=== PATIENT | female | born 2000 | race Caucasian/White ===

== ENCOUNTER 2022-06-20 11:51 | Emergency (ER) | payer BC ==
[~2022-06-20] VITALS: Ht 157.5 cm; Wt 72.7 kg
[2022-06-20 12:53] VITALS: TEMP 98
[2022-06-20 15:47] LABS: COLLECTION METHOD CLEAN CATCH
[2022-06-20 15:52] LABS: BASO # 0.1 K/mm3 (0.0-0.2); BASO % 0.6 % (0.0-2.0); EOS # 0.1 K/mm3 (0.0-0.7); EOS % 0.4 % (0.0-4.0); GRAN # 9.2 K/mm3 (1.4-6.5); GRAN % 65.1 % (42.2-75.2); HEMATOCRIT 44.2 % (37.0-47.0); HEMOGLOBIN 15.2 g/dl (12.5-16.0); LYMPH # 3.5 K/mm3 (1.2-3.4); LYMPH % 24.6 % (20.0-51.0); MEAN CELL VOLUME 83 fl (80.0-100.0); MEAN CORPUSCULAR HEMOGLOBIN 29 pg (27-31); MEAN CORPUSCULAR HGB CONC 34 g/dl (33.0-37.0); MEAN PLATELET VOLUME 10.4 fl (7.4-10.4); MONO # 1.2 K/mm3 (0.1-0.6); MONO % 8.8 % (1.7-9.3); PLATELET COUNT 343 K/mm3 (130-400); RED BLOOD COUNT 5.34 M/mm3 (4.10-5.30); REDCELL DISTRIBUTION WIDTH-CV 12.9 % (11.5-14.5)
[2022-06-20 16:02] LABS: MUCOUS Present (NOT PRESENT); SQUAMOUS EPITHELIAL 20-50 /hpf (0-10); URINE BACTERIA None Seen /hpf (NONE SEEN)
[2022-06-20 16:04] LABS: PH 5.5 (5.0-8.5); URINE APPEARANCE Hazy (CLEAR/HAZY); URINE COLOR Yellow (YELLOW); URINE GLUCOSE Negative (NEGATIVE); URINE KETONE 4+ (NEGATIVE); URINE NITRATE Negative (NEGATIVE); URINE PROTEIN(semi-quant) TRACE (NEGATIVE); URINE UROBILINOGEN 0.2 E.U/dL (0.2-1.0)
[2022-06-20 16:05] LABS: URINE BLOOD 3+ (NEGATIVE)
[2022-06-20 16:11] LABS: ALBUMIN 4.8 gm/dL (3.5-5.0); BILIRUBIN,TOTAL 1.4 mg/dL (0.2-1.2); CREATININE, serum 0.61 mg/dL (0.57-1.11); POTASSIUM 4.6 mmol/L (3.5-4.5); TOTAL PROTEIN 8.4 gm/dL (6.2-8.1)
[2022-06-20] MEDS ORDERED: NORCO 325 MG-51 TAB PO (18:42)
[2022-06-20] MEDS ORDERED: ZOFRAN ODT4 MG PO (18:42)
[2022-06-20 18:56] VITALS: BP 122/76; PULSE 75
== END 2022-06-20 19:03 | disposition home or self-care (01) ==
LOC: COL.ER 11:51
PROVIDERS: Personal Emergency Response Attendant
DX: R10.31 Right lower quadrant pain (principal); R10.11 Right upper quadrant pain; K80.20 Calculus of gallbladder without cholecystitis without obstruction; Z88.6 Allergy status to analgesic agent; Z32.02 Encounter for pregnancy test, result negative
CPT/HCPCS: J2270; J2405; J7030; Q9967

== ENCOUNTER 2022-07-19 10:43 | Day surgery (SDC) | payer BC ==
[~2022-07-19] VITALS: Ht 157.5 cm; Wt 73.5 kg
[2022-07-19] VITALS (7 sets, daily range): BP systolic 115–129; BP diastolic 55–73; PULSE 72–92; TEMP 97.4–97.7
[~2022-07-19 10:43] MED LIST: NORCO 325 MG-51 TAB PO; ZOFRAN ODT4 MG PO
[2022-07-19] MEDS ORDERED: PROZAC 20MG20 MG PO (11:54)
[2022-07-19] MEDS ORDERED: ESTARYLLA 35 MC1 TAB PO (11:54)
[2022-07-19 12:09] LABS: BILIRUBIN,TOTAL 1.2 mg/dL (0.2-1.2); CALCIUM 9.2 mg/dL (8.4-10.2); CREATININE, serum 0.58 mg/dL (0.57-1.11); POTASSIUM 3.9 mmol/L (3.5-4.5); TOTAL PROTEIN 6.9 gm/dL (6.2-8.1)
[2022-07-19] MEDS ORDERED: ULTRAM 50MG TAB50 MG PO (14:18)
--- NOTE | 2022-07-19 15:46 | NUR ---
1500 TRANSFERRED TO ROOM 1 FROM PACU PER CART. PATIENT AWAKE, ALERT. RESP CLEAR, SPONTANEOUS. VITAL SIGNS OBTAINED. ABD SOFT. INCISION SITES X 4 WITH BANDAID INTACT, NO DRAINAGE OBSERVED. 1515 MOTHER AND SIGNIFICANT OTHER IN ROOM. HOB ELEVATED 60 DEGREES. PATIENT REPORTS SOME SHOULDER DISCOMFORT. DEEP BREATHES WELL. BLANKET TO ABD. FOR SPLINTING WITH MOVEMENT. 1530 AWAKE, ALERT. TOLERATES PO WATER, JUICE AND APPLESAUCE WITHOUT NAUSEA. PO PAIN MED GIVEN FOR ABD PAIN 4-5/10, BUT "TOLERABLE". 1550 DISCHARGE INSTRUCTIONS REVIEWED. PATIENT, MOTHER AND SIGNIFICANT OTHER VERBAL UNDERSTANDING. COPY OF INSTRUCTIONS PROVIDED IN DISCHARGE FOLDER. ABD REMAINS DOFT. BANDAID X 4 SITES CLEAN, DRY AND INTACT.
--- NOTE | 2022-07-19 16:32 | NUR ---
1605 SITS ON EDGE OF BED. PATIENT MOVES WELL. DRESSES WITH MINIMAL ASSISTANCE FROM MOTHER.
== END 2022-07-19 16:20 | disposition home or self-care (01) ==
LOC: SDCO 10:43
PROVIDERS: Surgery
DX: K80.10 Calculus of gallbladder with chronic cholecystitis without obstruction (principal); K66.0 Peritoneal adhesions (postprocedural) (postinfection); G91.8 Other hydrocephalus; Z98.2 Presence of cerebrospinal fluid drainage device
CPT/HCPCS: J0330; J1100; J1170; J1885; J2250; J2405; J2704; J3010; J7120

== ENCOUNTER 2024-07-07 07:38 | Emergency (ER) | payer BC ==
[~2024-07-07] VITALS: Ht 157.5 cm; Wt 68.2 kg
[~2024-07-07 07:38] MED LIST changes: +ESTARYLLA 35 MC1 TAB PO; +PROZAC 20MG20 MG PO; +ULTRAM 50MG TAB50 MG PO
[2024-07-07 07:51] VITALS: TEMP 97.8
[2024-07-07 08:54] LABS: COLLECTION METHOD CLEAN CATCH
[2024-07-07 09:03] LABS: URINE APPEARANCE CLEAR (CLEAR/HAZY); URINE BLOOD 3+ (NEGATIVE); URINE COLOR YELLOW (YELLOW); URINE GLUCOSE NEGATIVE (NEGATIVE); URINE KETONE NEGATIVE (NEGATIVE); URINE NITRATE NEGATIVE (NEGATIVE); URINE PROTEIN(semi-quant) TRACE (NEGATIVE)
[2024-07-07 10:07] LABS: SQUAMOUS EPITHELIAL 0-2 /hpf (0-10); URINE BACTERIA OCCASIONAL /hpf (NONE SEEN)
[2024-07-07 11:00] VITALS: BP 120/71; PULSE 88
== END 2024-07-07 11:00 | disposition home or self-care (01) ==
LOC: COL.ER 07:38
PROVIDERS: Family Medicine
DX: O03.4 Incomplete spontaneous abortion without complication (principal)

== ENCOUNTER → 2024-07-08 | Outpatient (CLI) | payer BC | LOC: COL.RAD 05:27 | DX: R10.9 Unspecified abdominal pain (principal) ==